=== PATIENT | male | born 1995 | race Caucasian/White ===

== ENCOUNTER 2025-01-29 22:06 | Emergency (ER) | payer SELFPAY ==
[2025-01-29 22:25] VITALS: BP 147/53; PULSE 119; RESP 18; TEMP 36.4; O2SAT 99; BMI 20.9
[2025-01-29 22:30] VITALS: BP 118/78; PULSE 74; RESP 18; TEMP 37.1; O2SAT 98
--- OUTSIDE RECORDS SUMMARY | 2025-01-29 22:43 | XMS_ITS | Clinical Summary ---
Author Organization [facility] Address [address] [place] [address] Phone Care Team Providers Care Stone Banker Name Role Phone No Pcp, Per Patient Primary Care Provider Damon haines Allergies No known active allergies Medications * This document contains information received from the source organization and may not represent a complete record from that organization. ibuprofen (ADVIL;MOTRIN) 200 mg Oral Tablet Take 400 mg by mouth every 8 hours as needed for Pain. Active HYDROcodone-juana taminophen (NORCO) 5-325 mg Oral Tablet Take one Tab by mouth every 6-8 hours as needed (PRN) 15 Tablet 3 Active Additional Information Patient not taking.Reason: Pt electing to not take the medication, Reported on 08/01/2022 HYDROcodone-juana taminophen (NORCO) 5-325 mg Oral TabletIndicatio ns:Status post surgery,Finger infection,Lacer ation of left index finger without foreign body without damage to nail, initial encounter,Centr al slip extensor tendon injury (boutonniere), left Take one Tab by mouth every 6-8 hours as needed (PRN) 28 Tablet 3 Active Additional Information Patient not taking.Reported on 08/01/2022 HYDROcodone-juana taminophen (NORCO) 5-325 mg Oral TabletIndicatio ns:Status post surgery,Lacerat ion of left index finger without foreign body without damage to nail, initial encounter Take one Tab by mouth every 6-8 hours as needed (PRN) 15 Tablet 3 Active Additional Information Patient not taking.Reported on 08/01/2022 traMADoL (ULTRAM) 50 mg Oral TabletIndicatio ns:Status post surgery,Lacerat ion of left index finger without foreign body without damage to nail, initial encounter,Finge r infection,Centr al slip extensor tendon injury (boutonniere), left Take one Tab by mouth every 6-8 hours as needed (PRN) 20 Tablet 3 Active Additional Information Patient not taking.Reported on 09/26/2022 HYDROcodone-juana taminophen (NORCO) 5-325 mg Oral TabletIndicatio ns:Finger infection,Lacer ation of left index finger without foreign body without damage to nail, initial encounter,Statu s post surgery Take one Tab by mouth every 6-8 hours as needed (PRN) 15 Tablet 3 Active Additional Information Patient not taking.Reported on 09/26/2022 oxyCODONE (ROXICODONE) 5 mg Oral TabletIndicatio ns:Status post surgery,Central slip extensor tendon injury (boutonniere), left,Laceration of left index finger without foreign body without damage to nail, initial encounter Take 1 Tablet by mouth every 4 hours as needed for Major Surgery/Trauma (G89.18). 15 Tablet 3 Active HYDROcodone-juana taminophen (NORCO) 5-325 mg Oral TabletIndicatio ns:Laceration of left index finger without foreign body without damage to nail, initial encounter,Statu s post surgery,Central slip extensor tendon injury (boutonniere), left Take one Tab by mouth every 6-8 hours as needed (PRN) 15 Tablet 3 Active traMADoL (ULTRAM) 50 mg Oral TabletIndicatio ns:Laceration of left index finger without foreign body without damage to nail, initial encounter,Statu s post surgery Take one Tab by mouth every 6-8 hours as needed (PRN) 15 Tablet 3 Active Active Problems Patient Care Coordination No te Formatting of this note migh t be different from the original. No Show 04/18/2019- Maggy SHarp Problem Noted Date Diagnosed Date Finger infection 06/25/2022 Overview (06/25/2022): Added automatically from request for surgery [id number] Status post surgery 06/25/2022 Overview (06/25/2022): Added automatically from request for surgery [id number] Finger pain, left 05/16/2022 Overview (05/16/2022): Added automatically from request for surgery [id number] Laceration of left index fin layne without foreign body without damage to nail 05/16/2022 Overview (05/16/2022): Added automatically from request for surgery [id number] Central slip extensor tendon injury (valentinonniere ), left 05/16/2022 Overview (05/16/2022): Added automatically from request for surgery [id number] Resolved Problems Problem Noted Date Diagnosed Date Resolved Date Screening for thyroid disorder 05/01/2022 05/01/2022 Surgical History Surgery Date Site/Laterality Comments FINGER SURGERY 05/20/2022 Hand/Wrist/Left left index finger exploration with central slip repair; Surgeon: Devendra Wagner MD; Location: [facility]; Service: Hand Medical devices from this surgery are in the Medical Devices section. HAND TENDON SURGERY 05/20/2022 Hand/Wrist/Left .; Surgeon: Devendra Wagner MD; Location: [facility]; Service: Hand Medical devices from this surgery are in the Medical Devices section. FINGER SURGERY 06/25/2022 Hand/Wrist/Left Left Index Finger Incision and Drainage, removal of deep hardware, ; Surgeon: Devendra Wagner MD; Location: [facility]; Service: Hand HARDWARE REMOVAL 06/25/2022 Hand/Wrist Surgeon: Devendra Wagner MD; Location: [facility]; Service: Hand IR PICC INSERTION EQUAL OR > 5 YEARS 07/03/2022 IR PICC INSERTION EQUAL OR > 5 YEARS 07/03/2022 Erendira Coleman PA-C OMEGA IR WISDOM TOOTH EXTRACTION FINGER SURGERY 09/30/2022 Hand/Wrist/Left left index finger proximal interphalangeal joint fusion; Surgeon: Devendra Wagner MD; Location: [facility]; Service: Orthopedics Medical devices from this surgery are in the Medical Devices section. Medical History Medical History Date Comments Adhd Family History Medical History Relation Name Comments Heart Failure Mother Cirrhosis Neg Hx Colon Cancer Neg Hx Colon Polyps Neg Hx Crohn's Disease Neg Hx Liver Disease Neg Hx Relation Name Status Comments Mother Social History Tobacco Use Types Packs/Day Years Used Date Smoking Tobacco: Every Day Cigarettes 0.4 13.9 Started: 02/23/2011 Smokeless Tobacco: Never Tobacco Cessation:Ready to Q uit: Not Asked; Counseling Given: Not Answered Alcohol Use Standard Drinks/Week Comments No 0 (1 standard drink = 0.6 oz pur e alcohol) PHQ-2 Answer Date Recorded PHQ-2 Total Score 6 10/07/2019 Sex and Gender Information Value Date Recorded Sex Assigned at Not on file Legal Sex Male 3:29 AM EDT Gender Identity Not on file Sexual Orientation Not on file Last Filed Vital Signs Vital Sign Reading Time Taken Comments Blood Pressure 156/77 04/26/2023 2:05 PM EST Pulse 114 04/26/2023 2:02 PM EST Temperature 36.9 C (98.5 F) 04/26/2023 2:05 PM EST Respiratory Rate 18 04/26/2023 2:02 PM EST Oxygen Saturation 99% 04/26/2023 2:02 PM EST Inhaled Oxygen Concentration - - Weight 83.9 kg (185 lb) 04/26/2023 2:05 PM EST Height 180.3 cm (5' 11 ) 04/26/2023 2:05 PM EST Body Mass Index 25.8 04/26/2023 2:05 PM EST Plan of Treatment Health Maintenance Due Date Last Done Comments Annual Wellness Exam 1997 DTaP/TDaP/Td (1 - Tdap) 2013 Hepatitis B Vaccine (1 of 3 - 19+ 3-dose series) 2013 Pneumococcal Vaccine 0-49 (1 of 2 - PCV) 2013 COVID-19 Vaccine (2 - 2024-2 6 season) 2024 08/16/2021 Influenza Vaccine (#1) 2024 03/13/201 5 (Declined) Meningococcal B Vaccine Aged Out No l onger eligible based on patient's age to complete this topic Goals Goal Patient Goal Type Associated Problems Recent Progress Patient-Stated? Author Maintain a healthy diet, exercise regularly and maintain an ideal body weight General No Madhuri Winter RMA Stay Tobacco Free Lifestyle No Madhuri Winter RMA Medical Devices Implanted Type Area Roof Slater Device Identifier Shelf Expiration Date Model / Serial / Lot [place] Sut Corkscr Ft Sz2-0 1.6x2.2mm Micro 4mm 3/8cir Ti - [id number] Implanted:Qty : 1 on 05/20/2022 by Devendra Wagner MD at [facility] Left: Thumb ARTHREX [id number] 11/22/2024 [id number]-[id number] -40 / / [id number] Wire Esthela 0.914zdw9.5in Smth Dbl End Troc Pnt Guide - [id number] Implanted:Qty : 1 on 09/30/2022 by Devendra Wagner MD at [facility] Left: Finger MICROAIRE SURG INSTR 01/14/2025 [id number] / / [id number] [facility] [id number] [place] [id number] Care Teams Stone Banker Relationship Specialty Start Date End Date No Pcp, Per Patient PCP - General 04/26/23
--- NOTE | 2025-01-29 23:02 | ED_ITS ---
Discharge Plan Disposition Patient Disposition: Home, Self-Care Condition: Good Referrals Follow up/Referrals: Provider,Referral, [Primary Care Provider, Medical] - See instructions Activity Restrictions/Add. Instructions Additional Instructions/Restrictions: You were evaluated in the ER and are believed to be appropriate for discharge at this time. Drink plenty of water, Gatorade, Pedialyte to stay hydrated. Take Tylenol or ibuprofen if needed for general aches or fevers. Do not exceed the recommended dose on the bottle. Drink water and eat a small snack each time you take these medications to avoid side effects. You have been referred to Dr. Dodson to establish care with primary care. 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 He can follow this up outpatient. Follow-up with his office in 2 to 3 days for reevaluation. You have been referred to Dr. Mae to establish care with orthopedics. Call his office to make an appointment. Reach out to [place] to obtain your medical records if you wish to share them with the physicians here at [facility]. Return to the ER with any new, worsening, or otherwise concerning symptoms. Clinical Impressions Clinical Impression: Allergic reaction to contrast dye, Body aches, Amphetamine abuse, Vascular malformation of kidney Print Language Print Language: Khmer Discharge ED Provider: Mary Rodgers General Adult HPI General Chief complaint: PAIN Stated complaint: left hand pain and swollen Time Seen by Provider: 01/29/25 23:00 Mode of Arrival: Ambulatory Source of Information: Patient Description of Symptoms (Recalled from ER Triage Doc. by RN): PT presents with left pointer finger pain as well as fluid retention, dysuria, and hematuria. PT had a previous surgery on the finger with pain and ended up with a blood infection about 2 years ago. Pt presents with concern the infection is back. History of Present Illness HPI narrative: 29-year-old male with history of amphetamine use including active use today (reportedly no IV use) presents to the ER with complaints of left index finger pain, diffuse random waxing and waning body aches, discomfort in his back/ kidneys with urination, intermittent hematuria. Patient reports 2 years ago he had surgery on the left index finger at [place] and ended up with severe infection requiring PICC line and IV antibiotics. He reports the joint in the left index finger (PIP) is fused and that he was told by the surgeon he would likely have complications with it in the future. He states about 1 year ago he felt a pop and since that time the joint has gotten gradually more crooked so the distal end of the index finger deviates radially. He states it is progressively more painful over the last year and he has developed shooting pains from the finger back into the hand and wrist that have developed in this timeframe. He states over the last 2 weeks he has had intermittent swelling in random joints. Especially his knees. He states they are not swollen today. He states when he would get the swelling he was worried he was retaining fluid like when he had the bloodstream infection a few years ago so he took his leftover fluid pills. He has not taken any in the last few days. He does state he occasionally gets chest pains that wraparound from the back over his shoulder and into the chest. He denies any shortness of breath. He denies any chest pain at this time. He reports intermittent nausea but no vomiting. No diarrhea or constipation. No cough or congestion, no documented fevers. Patient is primarily concerned that he could potentially have blood infection again Related Data Allergies Allergy/AdvReac Type Severity Reaction Status Date / Time CT iodinated contrast Allergy Mild Rash Uncoded 01/29/25 23:57 [facility] Disclaimer: The information contained in this section may have been updated after the patient was seen, as this information can be updated by other users. Social History Smoking Status: Current every day smoker alcohol intake: current current occupational status: other Travel in the last 8 weeks?: None ROS Obtained: Yes Systems reviewed as appropriate & no additional complaints except as documented per HPI Physical Exam General General appearance: alert and in no apparent distress Head Head exam: atraumatic and normocephalic Eye Eye exam: Present PERRL and EOMI ENT ENT exam: Present mucous membranes moist Neck Neck exam: Present normal inspection and full ROM Chest Chest inspection: Present symmetric chest wall rise Respiratory Respiratory exam: Present normal lung sounds bilaterally; Absent respiratory distress, wheezes or stridor Cardiovascular Cardiovascular exam: Present normal rhythm and tachycardia Abdominal Exam Abdominal exam: Present soft; Absent distention, tenderness, guarding or rebound Extremities Exam Extremities exam: Present full ROM and other (Left index finger PIP crooked with radial deviation of the distal index finger, there is no erythema, swelling, or induration, brisk capillary refill present, neurologically intact); Absent edema or joint swelling Back Exam Back exam: Present CVA tenderness (R) and CVA tenderness (L) Comment: Mild bilateral CVA tenderness Neurological Exam Neurological exam: Present alert and oriented X3; Absent motor sensory deficit Psychiatric Psychiatric exam: Present normal affect and normal mood Skin Skin exam: Present warm and dry Medical Decision Making Medical Records Screening: Per USPSTF and CDC recommendations, given the prevalence of disease in our region, it is our hospital?s policy to screen for HIV and viral Hepatitis for all patients aged 18 and over and those with ongoing risk factors. Lars Inquiry Pt receiving controlled substance: No Vital Signs: 01/29/25 22:25 01/29/25 22:30 01/30/25 00:14 Temperature 97.6 F 98.8 F Temperature Source Temporal Artery Scan Pulse Rate 74 103 H Pulse Rate [Right] 119 H Respiratory Rate 18 18 Blood Pressure 118/78 124/79 Blood Pressure [Right Arm] 147/53 H Blood Pressure Mean 90 Blood Pressure Mean [Right Arm] 84 Blood Pressure Source [Right Arm] Automatic Cuff Blood Pressure Position [Right Arm] Sitting 02 Sat by Pulse Oximetry 99 98 100 Oxygen Delivery Method Room Air Room Air Lab Data Lab Results 01/29/25 22:36: Urine Color Yellow, Urine Appearance Clear, Urine pH 7.0, Ur Specific [place] 1.015, Urine Protein 1+ A, Urine Glucose (UA) Negative, Urine Ketones Negative, Urine Blood Negative, Urine Nitrate Negative, Urine Bilirubin Negative, Urine Urobilinogen 1.0, Ur Leukocyte Esterase Negative, Urine RBC None, Urine WBC None, Ur Squamous Epith Cells None, Urine Bacteria None, Urine Sperm 1+, Urine Opiates Screen Negative, Urine Methadone Screen Negative, Ur Barbituates Screen Negative, Ur Phencyclidine Scrn Negative, Ur Amphetamines Screen TNP, U Benzodiazepines Scrn Negative, Urine Cocaine Screen Negative, U Marijuana (THC) Screen Negative 01/29/25 22:41: WBC 9.3, RBC 5.71, Hgb 16.6, Hct 48.8, MCV 85.5, MCH 29.1, MCHC 34.0, RDW 12.5, Plt Count 397, MPV 10.0, Neut % (Auto) 55.8, Lymph % (Auto) 29.4, [place] % (Auto) 10.9 H, Eos % (Auto) 2.5, Baso % (Auto) 1.3, Neut # (Auto) 5.2, Lymph # (Auto) 2.7, [place] # (Auto) 1.0, Eos # (Auto) 0.2, Baso # (Auto) 0.1, Sodium 137, Potassium 3.7, Chloride 101, Carbon Dioxide 30, Anion Gap 9.7, BUN 13, Creatinine 0.90, Estimated Creat Clear 115, Estimated GFR 99, Est GFR ( Amer) 120, Glucose 88, Lactate 0.9, Calcium 9.4, Total Bilirubin 1.0, AST 40, ALT 45, Alkaline Phosphatase 67, Troponin I < 0.01, NT-Pro-B Natriuret Pep < 20.0, Total Protein 8.0, Albumin 4.7, Globulin 3.3 H, Albumin/Globulin Ratio 1.4 01/30/25 00:14: VBG pH 7.41, VBG pCO2 40.7, VBG pO2 106.0 H, VBG HCO3 25.5, VBG Total CO2 26.7, VBG O2 Saturation 98.4 H, VBG Base Excess 0.9, VBG Lactic Acid 1.1 01/29/25 22:41 01/29/25 22:41 Orders (Tests/Meds): ED MEDICATIONS Discontinued Medications Generic Name Dose Route Start Last Admin Trade Name Yvonne PRN Reason Stop Dose Admin Diphenhydramine HCl 25 mg 01/29/25 23:49 01/29/25 23:53 Diphenhydramine 50mg/Ml Vial IV 01/29/25 23:50 25 mg ONCE ONE Administration Diphenhydramine HCl 25 mg 01/29/25 23:57 01/30/25 00:02 Diphenhydramine 50mg/Ml Vial IV 01/29/25 23:58 25 mg ONCE ONE Administration Lactated Ringer's 1,000 mls @ 999 mls/hr 01/29/25 23:00 01/29/25 23:18 Lactated Ringer's 1000 Ml Bag IV 01/30/25 00:00 999 mls/hr .Q1H1M ONE Administration Iopamidol 70 ml 01/29/25 23:50 01/29/25 23:52 Iopamidol-370 (76%);100ml Bottle IV 01/29/25 23:51 70 ml ONCE ONE Administration Methylprednisolone Sodium Succinate 125 mg 01/29/25 23:57 01/30/25 00:02 Methylprednisolone Sod Succ 125mg Vial IV 01/29/25 23:58 125 mg ONCE ONE Administration Sodium Chloride 50 ml 01/29/25 23:50 01/29/25 23:52 0.9 % Sodium Chloride 50 Ml Vial IV 01/29/25 23:51 50 ml ONCE ONE Administration Sodium Chloride 10 ml 01/29/25 23:50 01/29/25 23:52 Sodium Chloride 0.9% 10ml Syr (Rad Only) IV 01/29/25 23:51 10 ml ONCE ONE Administration ORDERS Category Date Time Status CT abdomen pelvis w con Stat Cat Scan 01/29/25 23:[address] angio chest PE protocol Stat Cat Scan 01/29/25 23:23 Completed Finger XR left minimum 2 views [XR finger LT min 2V] Exams 01/29/25 23:19 Completed Stat POCUS Point of Care (ER Only) Stat Exams 01/29/25 23:03 Completed BNP [NT Pro Brain Natriuretic Pep.] Stat Lab 01/29/25 22:41 Completed CBC w/Auto Diff [Complete Blood Count Auto Diff] Stat Lab 01/29/25 22:41 Completed CMP [Comprehensive Metabolic Panel] Stat Lab 01/29/25 22:41 Completed Lactic Acid Stat Lab 01/29/25 22:41 Completed Trop I [Troponin I] Stat Lab 01/29/25 22:41 Completed Troponin I Q3H Lab 01/30/25 02:15 Ordered Troponin I Q3H Lab 01/30/25 05:15 Ordered UDS [Drug Screen,Urine] Stat Lab 01/29/25 22:36 Completed Urinalysis and Microscopic Stat Lab 01/29/25 22:36 Completed Urine Chlam/Gono/Trich ([facility]) Stat Lab 01/30/25 00:01 Received Blood Culture Stat Micro 01/29/25 22:51 Received VBG [Venous Blood Gas] Stat RT 01/30/25 00:14 Completed Medical Decision Narrative: In summary, this 29-year-old male with comorbidities described in the HPI and social determinants of health including active amphetamine use presents to the emergency department today with multiple diffuse complaints including intermittent chest pain, intermittent hematuria, pain in his back with urination, 1 year of gradually worsening left index finger pain, primarily concerned that these are similar symptoms to what he had when he had a blood infection 2 years ago. On initial evaluation patient is mildly tachycardic but otherwise hemodynamically stable, afebrile, GCS 15, neurologically intact, he has radial deviation of the distal left index finger but neurovascularly intact, no evidence of acute injury or infection, no reproducible chest pain on exam, patient does have bilateral mild CVA tenderness, no abdominal tenderness, no peripheral edema or swollen joints at this time. Differential diagnosis includes but is not limited to bacteremia, considered endocarditis, PE, fracture or other osseous injury, hardware failure, UTI, migratory arthritis, STI related arthritis, pyelonephritis, kidney stone, among others. Based on these concerns, I ordered hematologic and serum labs, cardiac workup, CT imaging, x-ray, I also performed [id number] ultrasound of the patient's heart at bedside which does not demonstrate any vegetations or obvious cardiac abnormality, see procedure note for details. ECG personally interpreted demonstrates sinus tachycardia, rate 103, right axis, normal UT and QTc, no STEMI. Patient received IV fluids initially for treatment. Labs personally reviewed demonstrate no leukocytosis or anemia, normal platelets, CMP nonactionable, initial troponin undetectably low less than 0.01 significantly reassuring in the setting of nonischemic ECG and patient not having any chest pain at this time or within the last 6 hours, BNP undetectable also reassuring against volume overload which is consistent with the patient's clinical picture. UA negative for findings of infection, UDS with evidence of amphetamines consistent with history provided by patient. VBG with normal pH, normal pCO2, normal VBG and chemistry lactic. XR personally interpreted demonstrates no obvious acute osseous injury of the left index finger. See radiology read for full interpretation. Patient came back from CT stating he was itchy, he was having rash with mild urticaria. He received Benadryl and Solu-Medrol for treatment. I documented iodinated contrast as an allergy for this patient. He is already showing signs of improvement and did not have any signs of anaphylaxis, shock, or angioedema. CT imaging personally interpreted demonstrate no PE, no acute intrathoracic abnormality, see radiology read for final interpretation. CT abdomen pelvis personally interpreted demonstrates no obvious evidence of infection or acute surgical pathology, no kidney stone, see radiology read for final interpretation. 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 This is not an acute emergent finding and can be followed up outpatient. I notified the patient of this. He is comfortable with this plan. Patient has been referred to Dr. Dodson to establish PCP care here. Patient was placed in the ED observation at 0015 to monitor for rebound allergic reaction. He has remained on the monitor and been frequently reassessed. He has not had any recurrence of reaction and is resting comfortably with no allergic symptoms at this time. I believe he is appropriate for discharge at this time because he has a very reassuring exam and workup. I reviewed all results with the patient. He is reassured by the workup. He understands that STI testing and blood cultures are still pending. I will call him if STI test is positive and he will receive a phone call if his blood cultures ended up being positive. He understands all this. He requested a referral to local orthopedics to follow-up about his finger, referral to Dr. Olguin has been placed. I also referred to Dr. Dodson as stated above. Patient plans to transfer his care here from [place] and we talked about him having to do a records request to transfer his records from there to here. He understands all of this. Patient is appropriate for discharge at this time. Patient was given instructions on symptomatic monitoring and management, follow up instructions, and return precautions for the emergency department. Patient indicated understanding and was discharged in stable condition. I had a [id number] conversation with this patient at the time of discharge reviewing all instructions with him. Total time spent preparing this discharge was less than 30 minutes. Total time in ED observation: 1 hour 30 minutes Procedures Miscellaneous Procedure Procedure Performed: Limited Cardiac Ultrasound Performed by: Mary Rodgers MD Indication: Chest pain Identified cardiac views: Subxiphoid view was obtained, the other views were not able to be obtained secondary to poor acoustic windows Findings: Cardiac activity present with no gross wall motion abnormality, no pericardial effusion, no right heart strain, no obvious vegetations appreciated on the valves Impression: - Unremarkable limited cardiac ultrasound Images were saved to permanent archive The study was technically adequate CPT: 10458 This study was performed by me, and I personally interpreted all images/videos. Based on my clinical judgement, these images were adequate and did not necessitate further imaging. Critical Care Critical Care Time Critical Care Time: No
[2025-01-29 23:07] LABS: Hematocrit 48.8 % (42.0-52.0); Hemoglobin 16.6 g/dL (14.1-18.0); Immature Granulocytes % 0.1 %; Mean Corpuscular HGB Conc 34.0 g/dL (31.8-35.4); Mean Corpuscular Hemoglobin 29.1 pg (27.0-31.2); Mean Corpuscular Volume 85.5 fl (80-94); Nucleated Red Blood Cells % 0 %; Platelet Count 397 K/mm3 (142-424); Red Blood Count 5.71 M/mm3 (4.60-6.20); Red Cell Distribution Width-SD 39.0 fL; White Blood Count 9.3 K/mm3 (4.8-10.8)
[2025-01-29 23:07] LABS: Microscopic, Urine URINE MICROSCOPIC (MICROSCOPIC)
[2025-01-29 23:12] LABS: Bilirubin,Urine Negative (Negative); Color,Urine YELLOW (Yellow); Glucose,Urine (UA) Negative (Negative); Ketones,Urine Negative (Negative); Leukocyte Esterase,Urine Negative (Negative); PH,Urine 7.0 (5.0-8.5); Protein,Urine 1+ (Negative); Urobilinogen,Urine 1.0 EU/dl (0.2)
[2025-01-29 23:15] LABS: Alanine Aminotransferase 45 U/L (12-78); Albumin Level 4.7 g/dl (3.5-5.0); Albumin/Globulin Ratio 1.4 (1.1-1.8); Alkaline Phosphatase 67 U/L (38-126); Anion Gap 9.7 mEq/L (5-15); Aspartate Amino Transferase 40 U/L (17-59); Bilirubin,Total 1.0 mg/dl (0.2-1.3); Blood Urea Nitrogen 13 mg/dl (9-20); Calcium 9.4 mg/dl (8.4-10.2); Carbon Dioxide 30 mmol/L (22.0-30.0); Chloride 101 mmol/L (98-107); Creatinine Clearance Estimated 115 mL/min (50-200); Creatinine,Serum 0.90 mg/dl (0.66-1.25); Estimated Glomerular Filt Rate 99 ml/min (>60); GFR (African American) 120 ML/MIN (>60); Globulin 3.3 g/dL (1.3-3.2); Glucose 88 mg/dl (74-100); Potassium 3.7 mmoL/L (3.5-5.1); Sodium 137 mmol/L (136-145); Total Protein,Serum 8.0 g/dl (6.3-8.2)
[2025-01-29 23:15] LABS: Specific Gravity, Urine 1.015 (1.005-1.030)
[2025-01-29] MEDS: LACTATED RINGERS 1000ML 1,000 ML 999 ML IV (23:18)
[2025-01-29 23:19] LABS: Sperm,Urine 1+ /lpf
--- NOTE | 2025-01-29 23:19 | XR_ITS ---
PROCEDURE INFORMATION: Exam: XR Left Finger(s) Exam date and time: 01/29/2025 11:34 PM Age: 29 years old Clinical indication: Pain; Finger(s); Left; Additional info: Index finger HX surgery, getting more crooked/pain TECHNIQUE: Imaging protocol: Radiologic exam of the left fingers. Views: Minimum 2 views. COMPARISON: No relevant prior studies available. FINDINGS: Bones/joints: Osseous fusion across the proximal interphalangeal joint of the index finger. Cerclage wire and fixation nails are seen without evidence for acute surgical complication. Soft tissues: Normal. IMPRESSION: No acute osseous abnormality.
--- NOTE | 2025-01-29 23:20 | CT_ITS ---
PROCEDURE INFORMATION: Exam: CT Abdomen And Pelvis With Contrast Exam date and time: 01/29/2025 11:42 PM Age: 29 years old Clinical indication: Abdominal pain; Additional info: Diffuse aches, kidney pain w/ urination, hematuria TECHNIQUE: Imaging protocol: Computed tomography of the abdomen and pelvis with contrast. 3D rendering (Not supervised by radiologist): MIP and/or 3D reconstructed images were created by the technologist. Radiation optimization: All CT scans at this facility use at least one of these dose optimization techniques: automated exposure control; mA and/or kV adjustment per patient size (includes targeted exams where dose is matched to clinical indication); or iterative reconstruction. Contrast material: ISOVUE; Contrast volume: 70 ml; Contrast route: IV; COMPARISON: CT ANGIO CHEST PE PROTOCOL 01/29/2025 11:42 PM FINDINGS: Liver: Normal. No mass. Gallbladder and biliary ducts: Normal. No calcified stones. No ductal dilation. Pancreas: Normal. No ductal dilation. Spleen: Normal. No splenomegaly. Adrenal glands: Normal. No mass. Kidneys and ureters: Normal. No hydronephrosis. Stomach and bowel: Moderate colonic stool burden. Appendix: No evidence of appendicitis. Intraperitoneal space: Unremarkable. No free air. No significant fluid collection. Vasculature: Pelvic phleboliths. Multiple dilated serpiginous densities are seen about the right renal hilum. Lymph nodes: Unremarkable. No enlarged lymph nodes. Urinary bladder: Unremarkable as visualized. Reproductive: Unremarkable as visualized. Bones/joints: Early degenerative change of the spine. Soft tissues: Unremarkable. IMPRESSION: 1. No acute findings. 2. 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 CTA with delayed imaging of the abdomen for further assessment.
--- NOTE | 2025-01-29 23:21 | ECG_ITS ---
APPROVED REPORT Exam: Resting ECG HR:103 bpm ECG Measurements Heart Rate 103 AXES WY 128 P 80 QRSd 105 QRS 112 QT 325 T 81 QTc 385 Conclusion SINUS TACHYCARDIA RIGHT AXIS DEVIATION [QRS AXIS > 100] PATTERN CONSISTENT WITH PULMONARY DISEASE INCOMPLETE RIGHT BUNDLE BRANCH BLOCK [90+ ms QRS DURATION, TERMINAL R IN V1/V2, 40+ ms S IN I/aVL/V4/V5/V6] No STEMI Electronically signed by : KY MCKINNEY, 01/30/2025 07:51:30
--- NOTE | 2025-01-29 23:23 | CT_ITS ---
PROCEDURE INFORMATION: Exam: CTA Chest With Contrast Exam date and time: 01/29/2025 11:42 PM Age: 29 years old Clinical indication: Other: Chest pain; Additional info: Intermittent cp, tachy, amphetamine use TECHNIQUE: Imaging protocol: Computed tomographic angiography of the chest with contrast. Exam focused on the arteries. 3D rendering (Not supervised by radiologist): MIP and/or 3D reconstructed images were created by the technologist. Radiation optimization: All CT scans at this facility use at least one of these dose optimization techniques: automated exposure control; mA and/or kV adjustment per patient size (includes targeted exams where dose is matched to clinical indication); or iterative reconstruction. Contrast material: ISO; Contrast volume: 70 ml; Contrast route: INTRAVENOUS (IV); COMPARISON: CT ABDOMEN PELVIS W CON 01/29/2025 11:42 PM FINDINGS: Pulmonary arteries: Normal. No pulmonary emboli. Aorta: Unremarkable. No aortic aneurysm. No aortic dissection. Lungs: Unremarkable. No consolidation. No masses. Pleural spaces: Unremarkable. No pneumothorax. No pleural effusion. Heart: Unremarkable. No cardiomegaly. No pericardial effusion. Lymph nodes: Unremarkable. No enlarged lymph nodes. Bones/joints: Some early scattered degenerative change of the spine. Soft tissues: Unremarkable. IMPRESSION: No acute findings.
[2025-01-29 23:24] LABS: NT Pro Brain Natriuretic Pep. < 20.0 pg/mL (0-125)
[2025-01-29 23:28] LABS: Barbiturates Screen,Urine Negative ng/ml (<200); Benzodiazepines Screen,Urine Negative ng/ml (<200); Methadone Screen,Urine Negative ng/ml (<300); Opiate Screen,Urine Negative ng/ml (<300); Phencyclidine Screen,Urine Negative ng/ml (<25)
[2025-01-29] MEDS: 0.9 % SODIUM CHLORIDE 50 ML VIAL IV (23:52)
[2025-01-29] MEDS: IOPAMIDOL-370 (76%);100ML BOTTLE 70 ML IV (23:52)
[2025-01-29] MEDS: SODIUM CHLORIDE 0.9% 10ML SYR (RAD ONLY) 10 ML IV (23:52)
[2025-01-29 23:53] LABS: Troponin I < 0.01 ng/ml (0.00-0.034)
[2025-01-30] MEDS: METHYLPREDNISOLONE SOD SUCC 125MG VIAL 125 MG IV (00:02)
[2025-01-30 00:14] VITALS: BP 124/79; PULSE 103; O2SAT 100
[2025-01-30 00:20] LABS: Lactate Venous 1.1 mmol/L (0.4-2.0); VBG HCO3 25.5 mmol/L (23-30); VBG PCO2 40.7 mmol/L (35-51); VBG PH 7.41 mmol/L (7.31-7.41); VBG PO2 106.0 mmol/L (28-40)
--- NOTE | 2025-01-30 01:12 | [facility].ITSTN ---
Orders were placed for this pt with iodinated contrast. After verifying no previous reactions to the dye, pt then signed waiver giving permission to perform scan with dye. After scans were completed, pt stated that his eyes felt itchy . Pt ambulated to wheelchair and returned to room. ER staff notified.
[2025-01-30 01:48] VITALS: BP 125/76; PULSE 88; RESP 18; TEMP 37; O2SAT 100
== END 2025-01-30 01:56 | disposition home or self-care (01) ==
PROVIDERS: Emergency Provider Emergency Medicine
DX: M79.645 Pain in left finger(s) (principal); L50.0 Allergic urticaria; T50.8X5A Adverse effect of diagnostic agents, initial encounter; F15.10 Other stimulant abuse, uncomplicated; R00.0 Tachycardia, unspecified; Q27.34 Arteriovenous malformation of renal vessel; F17.210 Nicotine dependence, cigarettes, uncomplicated
CPT/HCPCS: 71275; 73140; 74177; 80053; 80307; 81001; 82803; 83605; 83880; 84484; 85025; 87040; 87491; 87591; 87661; 93005; 96361; 96374; 96375; 96376; 99285; J1200; J2919; J7120; Q9967